=== PATIENT | male | born 1980 | race Caucasian/White ===

== ENCOUNTER 2020-02-14 13:54 | Emergency (ER) | payer OTHER, SELFPAY ==
[2020-02-14 14:05] VITALS: BP 151/94; PULSE 92; RESP 16; TEMP 37.1; O2SAT 98
--- NOTE | 2020-02-14 14:24 | ED.MALEGU ---
HPI - Male Genitourinary General Chief complaint: Urogenital-Male Stated complaint: exposure to trichtomosis Time Seen by Provider: 02/14/20 14:11 Source: patient and RN notes reviewed Mode of arrival: ambulatory Limitations: no limitations History of Present Illness HPI Narrative: Patient presents today requesting to be tested for trichomonas. He was called today by his and told that she was positive for trichomonas at her RADIOISOTOPE TECHNICIAN's office and that he needs to be tested and treated as well. He does not have any symptoms. Denies history of STDs. MD Complaint: possible STD exposure Related Data Allergies Allergy/AdvReac Type Severity Reaction Status Date / Time No Known Allergies Allergy Verified 02/14/20 14:14 Review of Systems Review of Systems: Narrative: CONSTITUTIONAL: Denies body aches, fever, chills, or sweats. EYES: Denies visual changes, redness, or discharge. ENT: Denies rhinorrhea, congestion, sore throat, or otalgia. CARDIOVASCULAR: Denies chest pain, palpitations, or edema. RESPIRATORY: Denies cough or dyspnea. GASTROINTESTINAL: Denies abdominal pain, nausea, vomiting, or diarrhea. GENITOURINARY: Denies dysuria or hematuria. STD exposure SKIN: Denies rash, itching, or wounds. MUSCULOSKELETAL: Denies back pain, joint pain, or myalgia. NEUROLOGIC: Denies headache, numbness, tingling, or weakness. PSYCH: Denies depression or anxiety. PMFSH Comments At time of signature, I have reviewed and agree with nursing past medical, surgical, social and family history unless otherwise noted. Please see nursing chart for further information. There is no relevant family history pertinent to the presenting complaint Exam Narrative: Exam Narrative: GENERAL: Well-appearing, well-nourished, and in no acute distress. HEAD: Normocephalic, atraumatic. EYES: EOMI. No redness or drainage. Conjunctivae normal. ENT: Mucous membranes pink and moist. NECK: Normal AROM. CHEST: No respiratory distress. EXTREMITIES: Normal range of motion. No edema. SKIN: Warm, dry, no rash. Capillary refill normal. Normal skin turgor. NEURO: No focal deficits. Alert and oriented x3. Gait steady. PSYCH: Normal affect. No signs of depression or anxiety. Course Course Emergency Course: Discussion with patient regarding trichomonas treatment. Will send over prescription for 7 days of Flagyl. Anticipatory guidance given. Would like gonorrhea and Chlamydia testing as well. States that his likely had these tests done at her [employer]IOISOT[employer] TECHNICIAN's office and she did not tell him they were positive and that he needed to be treated, so he would like to hold off on these treatments at this time, and will be willing to take treatment for these if they happen to come back positive. I think this is a fine plan of care, as patient seems reliable. Vital Signs Vital signs: Vital Signs Temperature 98.8 F 02/14/20 14:05 Pulse Rate 92 02/14/20 14:05 Respiratory Rate 16 02/14/20 14:05 Blood Pressure 151/94 H 02/14/20 14:05 Pulse Oximetry 98 02/14/20 14:05 Temperature 98.8 F 02/14/20 14:05 Pulse Rate 92 02/14/20 14:05 Respiratory Rate 16 02/14/20 14:05 Blood Pressure 151/94 H 02/14/20 14:05 Pulse Oximetry 98 02/14/20 14:05 Reviewed. Pt has been instructed to follow up with his PCP regarding his elevated blood pressure today. MDM - Male Genitourinary Differential Diagnosis Differential diagnosis: Likely other (Trichomonas, gonorrhea, chlamydia) Critical Care Time Critical Care Time Critical Care Time: No Discharge Plan Discharge Clinical Impression: Exposure to trichomonas Patient Disposition: Home, Self-Care Condition: Stable Instructions: Chlamydia (ED), Gonorrhea (ED), Trichomoniasis (ED) Additional Instructions: Your urine has been collected and will be sent off for trichomonas, gonorrhea, and chlamydia. A prescription for Flagyl has been sent to your pharmacy to treat your for trichomonas. If your
== END 2020-02-14 14:35 | disposition home or self-care (01) ==
PROVIDERS: Emergency Provider Nurse Practitioner
DX: Z20.2 Contact with and (suspected) exposure to infections with a predominantly sexual mode of transmission (principal)
CPT/HCPCS: 87491; 87591; 87661; 99213; G0463

== ENCOUNTER 2020-05-02 13:34 | Emergency (ER) | payer OTHER, SELFPAY ==
--- NOTE | ~2020-05-02 | XR_ITS ---
EXAMINATION: XR lumbar spine 2-3V EXAM DATE: 05/02/2020 14:25 INDICATION: low back pain, rt leg pain and numbness no injury x 5 days. TECHNIQUE: Lumber spine frontal, lateral, lateral L5-S1 projections for interpretation. There is no prior study for comparison. FINDINGS: Mild to moderate lower lumbar, mild upper lumbar facet arthropathy. Mild disc disease L3-S 1. Paraspinal soft tissue is unremarkable. Sacrum, sacroiliac joints, sacral arcuate lines are intact . The vertebral bodies are aligned in the AP dimension. No spondylolysis. IMPRESSION: 1. Mild to moderate lumbar spondylosis. No acute findings. Reviewed, dictated and finalized at location B. D WOOD TESTER
[2020-05-02 13:44] VITALS: BP 154/87; PULSE 98; RESP 20; TEMP 35.9; O2SAT 99
--- NOTE | 2020-05-02 13:48 | ED.LOWEXIN ---
HPI - Extremity Injury (Lower) General Chief Complaint: Extremity Injury, Lower Stated Complaint: Leg pain Time Seen by Provider: 05/02/20 14:09 Source: patient and RN notes reviewed Mode of arrival: ambulatory Limitations: no limitations History of Present Illness HPI Narrative: 39-year-old mal presents with concern for right leg pain begins in the middle of his right buttock, goes down the middle of his right leg and ends in his foot. He reports numbness in the right foot. He reports he has a history of chronic intermittent back pain and started having back pain on April 19 that is typical for him. Reports he went to a chiropractor and had several days of treatments improving the back pain. He reports when he went for subsequent treatment 2 days ago the next day he began having the right leg pain. Reports he has tried Tylenol, ibuprofen, ice, heat, hot tub with little relief. He denies any recent or past history of back trauma, injury, falls, car accidents. Reports he had x-ray imaging at the chiropractor at the end of March MD complaint: other (Leg pain) Related Data Allergies Allergy/AdvReac Type Severity Reaction Status Date / Time No Known Allergies Allergy Verified 05/02/20 13:53 Review of Systems Review of Systems: Narrative: CONSTITUTIONAL: Denies malaise, chills, sweats, or fever. CARDIOVASCULAR: Denies chest pain, palpitations, or edema. RESPIRATORY: Denies cough or dyspnea. GASTROINTESTINAL: Denies abdominal pain, nausea, vomiting, diarrhea, bloody, or mucous stools. GENITOURINARY: Denies dysuria or hematuria. SKIN: Denies bruising, redness MUSCULOSKELETAL: Denies back pain. Reports right leg pain that starts in the mid buttock and goes down to the foot, reports right foot numbness NEUROLOGIC: Denies headache. All systems reviewed & are unremarkable except as noted in HPI and below PMFSH Comments At time of signature, agree with nursing past medical, surgical, social and family history. There is no relevant family history pertinent to the presenting complaint Exam Narrative: Exam Narrative: GENERAL: Well-appearing, well-nourished, and in no acute distress. HEAD: Normocephalic, atraumatic. EYES: PERRLA and EOMI. NECK: Supple. No lymphadenopathy. CHEST: Clear to auscultation. No respiratory distress. HEART: Regular rate and rhythm. Distal pulses palpable and equal, cap refill <3 seconds ABDOMEN: Soft, nontender, nondistended, normal active bowel sounds, no palpable or pulsatile masses. No CVA tenderness MUSCULOSKELETAL: Normal range of motion and strength in all extremities; 5/5 strength with hip flexion and extension, dorsiflexion and extension, knee flexion and extension, plantar flexion and extension of left lower extremity. 3/5 strength with right hip flexion. Normal sensation in dermatomal distributions with sensitivity to light touch and pain. No midline back tenderness to palpation. No paraspinal tenderness. Transfers from lying to sitting to standing. SKIN: Warm, dry, no rash. No ecchymosis, erythema, open wounds to back. NEURO: No focal deficits. Alert and oriented x3. Normal gait. PSYCH: Normal mood and affect Course Course Emergency Course: Patient is aware of diagnosis, understands and agrees to treatment plan. Anticipatory guidance given. Patient agrees to follow-up as directed and is aware of reasons to seek care at the emergency department. Portions of this record may have been created with voice recognition software Vital Signs Vital signs: Reviewed. Pt has been instructed to follow up with his primary care provider within the next week regarding his elevated blood pressure today. MDM - Extremity Injury (Lower) MDM Narrative Medical decision making narrative: Patients pain is consistent with musculoskeletal etiology. No signs of neurological or vascular compromise on exam. Compartments and tissues are soft without signs of compartment syndrome. Pain is felt appropriate for further evaluation on an out
[2020-05-02 13:55] VITALS: BP 154/87; PULSE 98; RESP 20; TEMP 35.9; O2SAT 99
== END 2020-05-02 14:36 | disposition home or self-care (01) ==
PROVIDERS: Emergency Provider Nurse Practitioner
DX: M54.5 Low back pain (principal)
CPT/HCPCS: 72100; 99213; G0463

== ENCOUNTER → 2020-09-12 08:50 | Outpatient (CLI) | payer OTHER, SELFPAY ==
--- NOTE | ~2020-09-12 | XR_ITS ---
EXAMINATION: XR chest 2V DATE: 09/12/2020 09:06 INDICATION: Personal history of nicotine dependence, unspecified TECHNIQUE: PA and lateral views of the chest are obtained. COMPARISON: None available FINDINGS: The lungs are free of acute opacities. There is no pleural effusion or pneumothorax. The ca rdiomediastinal silhouette is normal. There is mild thoracic spondylosis. IMPRESSION: 1. No acute cardiopulmonary abnormality. Reviewed, dictated and finalized at location A.
--- NOTE | ~2020-09-12 | MR_ITS ---
EXAMINATION: MR lumbar spine wo con DATE: 09/12/2020 09:38 INDICATION: Low back pain. Lumbar radiculopathy. TECHNIQUE: Magnetic resonance imaging (MRI) of the lumbar spine was performed without intravenous con trast. Sequences included sagittal T2-weighted FSE, sagittal T2-weighted FS FSE, sagittal T1-weighted FSE, and axial T2-weighted FSE. COMPARISON: Lumbar spine radiographs 05/02/2020 FINDINGS: Bone alignment is normal. Vertebral body heights are normal. There is mildly decreased disc height at L3-L4 and L4-L5. Osseous central spinal canal is developmentally small from L2 to L4. The distal spinal cord signal intensity is normal. The conus medullaris is at L1-L2. The following disc l evels are specifically discussed: L1-L2: The disc does not extend beyond the endplate margin. There is mild bilateral facet joint osteo arthritis. There is no neural foraminal stenosis. There is no central canal stenosis. L2-L3: There is a right central protrusion. There is mild bilateral facet joint osteoarthritis. There is no neural foraminal stenosis. There is mild central canal stenosis. L3-L4: The disc is mildly bulging. There is mild bilateral facet joint osteoarthritis. There is mild bilateral neural foraminal stenosis. There is mild central canal stenosis. L4-L5: There is a right central and subarticular zone extrusion with mass effect on right L5 nerve ro ot in right lateral recess. There is mild bilateral facet joint osteoarthritis. There is mild bilater al neural foraminal stenosis. There is mild central canal stenosis. L5-S1: The disc is mildly bulging. There is mild bilateral facet joint osteoarthritis. There is mild right neural foraminal stenosis. There is mild central canal stenosis. IMPRESSION: 1. Extrusion at L4-L5 with mass effect on right L5 nerve root. 2. Mild lumbar spondylosis. Reviewed, dictated and finalized at location B.
== END ==
PROVIDERS: PCP Family Medicine; Visit Provider Family Medicine
DX: M47.26 Other spondylosis with radiculopathy, lumbar region (principal); M51.26 Other intervertebral disc displacement, lumbar region
CPT/HCPCS: 71046; 72148

== ENCOUNTER 2020-09-14 08:01 | Outpatient (CLI) | payer OTHER, SELFPAY ==
[2020-09-14 19:00] LABS: Basophils Absolute Auto 0.1 K/mm3 (0.0-0.1); Basophils Percent Auto 0.9 % (0.2-1.2); Eosinophils Absolute Auto 0.2 K/mm3 (0-0.3); Eosinophils Percent Auto 2.2 % (0-4.4); Hematocrit 53.8 % (42.0-52.0); Hemoglobin 17.4 g/dL (14.0-18.0); Immature Granulocyte Absolute 0.03 K/mm3 (0.00-0.031); Immature Granulocyte Percent A 0.4 % (0-0.5); Lymphocytes Absolute Auto 2.31 K/mm3 (0.9-3.2); Lymphocytes Percent Auto 29.2 % (18.3-44.2); Mean Corpuscular HGB Conc 32.3 g/dl (32-36); Mean Corpuscular Volume 89.7 fl (80-100); Mean Platelet Volume 9.9 fl (7.4-10.4); Monocytes Absolute Auto 0.5 K/mm3 (0.1-0.6); Monocytes Percent Auto 6.7 % (2.6-8.5); Neutrophils Absolute Auto 4.8 K/mm3 (1.3-6.7); Neutrophils Percent Auto 60.6 % (45.5-73.1); Platelet Count Result 185 k/mm3 (150-375); Red Cell Distribution Width 12.7 % (11.5-14.5); White Blood Count 7.9 K/mm3 (4.5-10.0)
[2020-09-14 19:06] LABS: Add Urine Microscopic? YES; Appearance Urine Clear (Clear); Bacteria Urine Trace /hpf; Bilirubin Urine Negative (Negative); Blood Urine 1+ (Negative); Color Urine Yellow (Yellow); Glucose Urine UA Negative (Negative); Ketones Urine Negative (Negative); Leukocyte Esterase Ur Negative LEU/UL (Negative); Mucus Urine Rare /lpf; Nitrate Urine Negative (Negative); Protein Urine Negative (Negative); Specific Grav Ur 1.023 (1.001-1.035); Urobilinogen Urine Negative mg/dL (<2.0); WBC Urine 0-3 /hpf
[2020-09-14 19:34] LABS: Vitamin D 25 Hydroxy 24.6 ng/mL
[2020-09-14 20:06] LABS: Alanine Aminotransferase 65 U/L (4-50); Albumin Level 4.3 g/dL (3.5-5.1); Alkaline Phosphatase 93 U/L (38-126); Anion Gap 8 mmol/L (8-16); Aspartate Amino Transferase 33 U/L (17-59); Bilirubin,Total 0.6 mg/dL (0.2-1.3); Blood Urea Nitrogen 13 mg/dL (9-20); Calcium 9.6 mg/dL (8.4-10.2); Carbon Dioxide 27 mmol/L (22-30); Chloride 106 mmol/L (98-107); Cholesterol 198 mg/dL (0-200); Estimated Glomerular Filt Rate > 60; Glucose 92 mg/dL (75-110); HDL Direct 41 mg/dL; Potassium 4.6 mmol/L (3.4-5.0); Sodium 141 mmol/L (137-145); Triglycerides 225 mg/dL (<150)
[2020-09-14 20:17] LABS: LDL Cholesterol Direct 106 mg/dL
[2020-09-14 21:11] LABS: Folic Acid 4.1 ng/mL (2.76->20)
[2020-09-21 07:39] LABS: Testosterone Free 43.4 pg/mL (35.0-155.0); Testosterone Total 268 ng/dL (250-1100)
== END 2020-09-14 08:02 | disposition home or self-care (01) ==
LOC: ANHBWCLAB 08:04
PROVIDERS: PCP Family Medicine; Visit Provider Family Medicine
DX: M54.16 Radiculopathy, lumbar region (principal); Z13.9 Encounter for screening, unspecified; Z79.899 Other long term (current) drug therapy; Z82.62 Family history of osteoporosis; N99.89 Other postprocedural complications and disorders of genitourinary system
CPT/HCPCS: 36415; 80053; 80061; 81001; 82306; 82607; 82746; 84402; 84403; 84443; 85025; 86140

== ENCOUNTER 2023-03-26 08:11 | Emergency (ER) | payer OTHER, SELFPAY ==
--- NOTE | 2023-03-26 08:16 | ED.MALEGU ---
HPI - Male Genitourinary General Chief complaint: Urogenital-Male Stated complaint: Private area checked Time Seen by Provider: 03/26/23 08:23 Source: patient and RN notes reviewed Mode of arrival: ambulatory Limitations: no limitations History of Present Illness HPI Narrative: 42-year-old male presents with concern for lesions to his penis. Reports he noticed an yesterday. Reports they are slightly itchy, not painful. He reports they do not have any drainage. He denies any penile discharge, dysuria, frequency, urgency, testicle swelling or redness. He denies any history of general herpes. He reports he does have unprotected sex. MD Complaint: possible STD exposure Related Data Allergies Allergy/AdvReac Type Severity Reaction Status Date / Time No Known Allergies Allergy Verified 09/29/20 15:09 Review of Systems Review of Systems: CONSTITUTIONAL: Denies malaise, chills, sweats, or fever. CARDIOVASCULAR: Denies chest pain, palpitations, or edema. RESPIRATORY: Denies cough or dyspnea. GASTROINTESTINAL: Denies abdominal pain, nausea, vomiting, diarrhea GENITOURINARY: Denies dysuria, frequency, urgency, suprapubic pressure. Denies flank pain or hematuria. Denies penile discharge SKIN: Reports lesions on his penis MUSCULOSKELETAL: Denies back pain or myalgia. All systems reviewed & are unremarkable except as noted in HPI and below PMFSH Past Medical History Medical History History of frequent headaches Surgical History Surgical History History of appendectomy Family History Family History Grandparent Heart problem Social History Social History Smoking packs per day: 1 Smoking cigarettes per day: 20.0 Years smoked: 20 Smoking pack-years: 20.00 Smoking status: Current every day smoker Alcohol intake: current Drinks per week: 1 Substance use: never Comments At time of signature, agree with nursing past medical, surgical, social and family history. There is no relevant family history pertinent to the presenting complaint Exam Narrative: GENERAL: Well-appearing, well-nourished, and in no acute distress. HEAD: Normocephalic. EYES: PERRLA, conjunctivae clear. NECK: Supple. No lymphadenopathy CHEST: Clear to auscultation. No respiratory distress. HEART: Regular rate and rhythm. SKIN: Warm, dry. Four scabbed erythematous papules in a linear pattern noted to the shaft of the penis NEURO: Alert and oriented x3. PSYCH: Normal mood and affect Course Course Emergency Course: Patient's symptoms are consistent with possible genital herpes, would treat prophylactically pending test results. Patient is aware that if he is positive for any other STI to will be discussed at that time Patient is aware of, understands and agrees to treatment plan. Anticipatory guidance given. Patient agrees to follow-up as directed and is aware of reasons to seek care at the emergency department. Portions of this record may have been created with voice recognition software Level of Care: Express Care Visit Vital Signs Vital signs: Reviewed. Critical Care Time Critical Care Time Critical Care Time: No Discharge Plan Discharge Clinical Impression: Lesion of penis Patient Disposition: Home, Self-Care Condition: Stable Instructions: Safe Sex Practices (ED) Additional Instructions: You have been tested for potential genital herpes, gonorrhea, chlamydia, and trichomoniasis today. You have received antiviral medicine to treat potential genital herpes. You will receive a phone call in 2-3 days with the results of today's testing. If you are positive for gonorrhea, chlamydia, trichomoniasis you will need to receive treatment, antibiotics for chlamydia and trichomoniasis can be sen
[2023-03-26 08:17] VITALS: BP 151/94; PULSE 102; RESP 16; TEMP 36.5; O2SAT 99
[2023-03-26 21:24] LABS: Trichomonas Vag PCR NOT DETECTED (NOT DETECTE)
[2023-03-26 21:47] LABS: Chlamydia trachomatis NOT DETECTED (NOT DETECTE); Neisseria gonorrhoeae PCR NOT DETECTED (NOT DETECTE)
== END 2023-03-26 08:56 | disposition home or self-care (01) ==
PROVIDERS: Emergency Provider Nurse Practitioner
DX: N48.89 Other specified disorders of penis (principal); F17.210 Nicotine dependence, cigarettes, uncomplicated
CPT/HCPCS: 87255; 87491; 87591; 87661; 99213; G0463

== ENCOUNTER 2024-05-18 09:58 | Emergency (ER) | payer OTHER, SELFPAY ==
--- NOTE | ~2024-05-18 | XR_ITS ---
EXAMINATION: XR knee LT 3V DATE: 05/18/2024 10:35 INDICATION: Anterior left knee pain without injury TECHNIQUE: Weight bearing anteroposterior, [place], and flexed lateral views of the left knee were obtained COMPARISON: None. FINDINGS: Alignment is normal. No fracture. Joint spaces appear normal on nonweightbearing imaging. No joint e ffusion. Soft tissues are unremarkable. IMPRESSION: 1. Negative left knee radiographs. Reviewed, dictated and finalized at location B. LTALK DEVELOPER
[2024-05-18 10:06] VITALS: BP 134/74; PULSE 96; RESP 20; TEMP 36.7; O2SAT 100
--- NOTE | 2024-05-18 10:57 | ED.GENADULT ---
HPI - General Adult General Chief complaint: Extremity Injury, Lower Stated complaint: Left Knee Pain Source: patient Mode of arrival: ambulatory Limitations: no limitations History of Present Illness HPI narrative: Patient presents for evaluation of left knee pain. Symptom onset 1 week ago. He denies any precipitating cause or injury. No history of similar symptoms in the past. At rest pain is minimal but it increases to a rating of 7/10 with certain movements. No radicular component. He tried taking Tylenol and applying Icy Hot, neither of which made a considerable difference in his symptoms. Related Data Home Medications ?Medication ?Instructions ?Recorded ?Confirmed ?Last Taken ?Type losartan 05/18/24 Unknown History Allergies Allergy/AdvReac Type Severity Reaction Status Date / Time No Known Allergies Allergy Verified 05/18/24 10:02 Review of Systems Review of Systems: CONSTITUTIONAL: Denies fever, chills, or sweats. EYES: Denies visual changes, redness, or discharge. ENT: Denies rhinorrhea, congestion, sore throat, or otalgia. CARDIOVASCULAR: Denies chest pain, palpitations, or edema. RESPIRATORY: Denies cough or dyspnea. GASTROINTESTINAL: Denies abdominal pain, nausea, vomiting, or diarrhea. GENITOURINARY: Denies dysuria or hematuria. SKIN: Denies rash or itching. MUSCULOSKELETAL: Reports the pain NEUROLOGIC: Denies headache, numbness, dizziness, or weakness. PSYCHIATRIC: Denies anxiety or depression. PMFSH Past Medical History Medical History History of frequent headaches Surgical History Surgical History History of appendectomy Family History Family History Grandparent Heart problem Social History Social History Smoking packs per day: 1 Smoking cigarettes per day: 20.0 Years smoked: 20 Smoking pack-years: 20.00 Smoking status: Current every day smoker Alcohol intake: current Drinks per week: 1 Substance use: never Exam Narrative: GENERAL: Well-appearing, well-nourished, and in no acute distress. HEAD: Normocephalic, atraumatic. EYES: PERRLA and EOMI. ENT: Nares clear, no rhinorrhea or epistaxis. Mucous membranes moist. Oropharynx without tonsillar hypertrophy exudate or other lesions. Bilateral TMs pearly abarca nonbulging NECK: Supple. No adenopathy or masses. No carotid bruits or JVD CHEST: Clear to auscultation. No respiratory distress. No wheezes rales or rhonchi HEART: Regular rate and rhythm. No murmur heard. Normal peripheral pulses. ABDOMEN: Soft, nontender, nondistended, normal active bowel sounds. EXTREMITIES: Full range of motion of the left knee. No crepitus or deformity. No tenderness the left knee. Full range of motion intact. SKIN: Warm, dry, no rash. NEURO: No focal deficits. Alert and oriented x3. PSYCH: Normal mood and affect. Course Course Emergency Course: This is a child presented for evaluation of left knee pain. X-ray negative. Exam is consistent with strain. Recommend NSAIDs for pain. Advised on RICE therapy. Increase hydration. [id number] agents for symptom management. Follow up with primary provider. Go to the ER for worsening symptoms. Patient in agreement with plan of care. Level of Care: Express Care Visit Vital Signs Vital signs: Vital Signs Temperature 36.7 C 05/18/24 10:06 Pulse Rate 96 05/18/24 10:06 Respiratory Rate 05/18/24 10:06 Blood Pressure 134/74 05/18/24 10:06 Pulse Oximetry 100 05/18/24 10:06 Oxygen Delivery Room Air 05/18/24 10:06 Temperature 36.7 C 05/18/24 10:06 Pulse Rate 96 05/18/24 10:06 Respiratory Rate 05/18/24 10:06 Blood Pressure 134/74 05/18/24 10:06 Pulse Oximetry 100 05/18/24 10:06 Oxygen Delivery Room Air 05/18/24 10:06 Medical Decision Making Vital Signs Vital Signs: Vital Signs Temperature 36.7 C 05/18/24 10:06 Pulse Rate 96 05/18/24 10:06 Respiratory Rate 20 05/18/24 10:06 Blood Pressure 134/74 05/18/24 10:06 Pulse Oximetry 100 05/18/24 10:06 Oxygen Delivery Room Air 05/18/24 10:06 Temperature 36.7 C 05/18/24 10:06 Pulse Rate 96 05/18/24 10:06 Respiratory Rate 20 05/18/24 10:06 Blood Pressure 134/74 05/18/24 10:06 Pulse Oximetry 100 05/18/24 10:06 Oxygen Delivery Room Air 05/18/24 10:06 Imaging Data Radiologist's impression: EXAMINATION: XR knee LT 3V DATE: 05/18/2024 10:35 INDICATION: Anterior left knee pain without injury TECHNIQUE: Weight bearing anteroposterior, [place], and flexed lateral views of the left knee were obtained COMPARISON: None. FINDINGS: Alignment is normal. No fracture. Joint spaces appear normal on nonweightbearing imaging. No joint effusion. Soft tissues are unremarkable. IMPRESSION: 1. Negative left knee radiographs. Discharge Plan Discharge Clinical Impression: Muscle strain of left knee Patient Disposition: Home, Self-Care Condition: Stable Instructions: Antibiotic Form, Knee Pain (ED) Additional Instructions: Apply ice to help with swelling and pain Ibuprofen should also help with your symptoms Patient Language: Vincentian Prescriptions: No Action losartan Follow-up/Referrals: Krishan Woodard MD [Primary Care Provider] - Time of Disposition: 10:44
== END 2024-05-18 10:47 | disposition home or self-care (01) ==
PROVIDERS: Emergency Provider Nurse Practitioner; PCP Emergency Medicine
DX: S86.912A Strain of unspecified muscle(s) and tendon(s) at lower leg level, left leg, initial encounter (principal); X58.XXXA Exposure to other specified factors, initial encounter; F17.210 Nicotine dependence, cigarettes, uncomplicated
CPT/HCPCS: 73562; 99213; G0463